=== PATIENT | female | born 1950 | race Caucasian/White ===

== ENCOUNTER → 2016-11-02 | Day surgery (SDC) | payer MEDICARE, OTHER ==
[2016-11-02 07:51] LABS: HCT 43.2 % (37.0-47.0); HGB 14.5 g/dl (12.5-16.0); MCH 30.4 pg (25.0-31.0); MCHC 33.6 g/dL (32.0-36.0); MCV 90.6 fL (78.0-100.0); MPV 11.4 fL (6.0-9.5); RBC 4.77 M/uL (4.20-5.40); RDW 13.1 % (11.5-14.0); WBC 4.8 K/uL (4.0-10.5)
[2016-11-02 08:10] LABS: ALBUMIN 4.8 g/dL (3.4-4.8); GLOBULIN (CALCULATION) 2.4 g/dL (2.2-4.2); TOTAL PROTEIN 7.2 g/dL (6.4-8.3)
== END | disposition home or self-care (01) ==
LOC: FAS 07:23
PROVIDERS: Surgery
DX: Z12.11 Encounter for screening for malignant neoplasm of colon (principal); I10 Essential (primary) hypertension; E03.9 Hypothyroidism, unspecified; Z88.5 Allergy status to narcotic agent; Z88.8 Allergy status to other drugs, medicaments and biological substances; Z91.040 Latex allergy status; Z79.899 Other long term (current) drug therapy; Z90.710 Acquired absence of both cervix and uterus; Z87.442 Personal history of urinary calculi; Z98.890 Other specified postprocedural states; Z90.722 Acquired absence of ovaries, bilateral; Z98.51 Tubal ligation status; Z80.0 Family history of malignant neoplasm of digestive organs; K58.9 Irritable bowel syndrome, unspecified
CPT/HCPCS: 36415; 80053; J2704